=== PATIENT | male | born 1950 | race Caucasian/White ===

== ENCOUNTER 2019-02-10 09:38 | Inpatient (IN) ==
[2019-02-10] MEDS ORDERED: methylPREDNISolone 125 MG/2 ML VIAL IVP ONE (10:00)
[2019-02-10] MEDS ORDERED: Ipratropium/Albuterol Neb 3 ML IH ONE (10:00)
[2019-02-10 10:18] LABS: Basophils # 0.1 K/mcL (0.0-0.2); Basophils % 0.4 %; Eosinophils # 0.1 K/mcL (0.0-0.6); Eosinophils % 0.6 %; Hematocrit 47.1 % (37.5-50.1); Hemoglobin 14.9 g/dL (12.9-16.9); Immature Granulocytes % 0.7 % (0-4); Lymphocytes # 3.2 K/mcL (0.6-4.6); Lymphocytes % 22.7 %; Mean Corpuscular HGB Conc 31.6 g/dL (31.6-35.5); Mean Corpuscular Hemoglobin 29.9 pg (28.0-33.3); Mean Corpuscular Volume 94.4 fL (83.0-100.0); Mean Platelet Volume 10.9 fL (9.4-12.4); Monocytes # 0.9 K/mcL (0.0-1.3); Monocytes % 6.7 %; Platelet Count 284 K/mcL (140-400); Red Blood Count 4.99 M/mcL (4.19-5.50); Red Cell Distribution Width 14.2 % (11.5-14.5); Segmented Neutrophils % 68.9 %
[2019-02-10 10:20] LABS: Neutrophils # 9.7 K/mcL (1.6-8.9)
--- NOTE | 2019-02-10 10:29 | Emergency Department Note ---
Disposition Clinical Impression: SIRS (systemic inflammatory response syndrome) Pneumonia Qualifiers: Pneumonia type: due to unspecified organism Laterality: unspecified laterality Lung location: unspecified part of lung Qualified Code(s): J18.9 - Pneumonia, unspecified organism CHF (congestive heart failure) Qualifiers: Heart failure type: unspecified Heart failure chronicity: acute Qualified Code(s): I50.9 - Heart failure, unspecified Disposition: Admitted As Inpatient Condition: Good Time of Disposition: 11:37 SOB HPI - General Chief Complaint: ED Shortness of Breath/Dyspnea Stated Complaint: DAMION Time Seen by Provider: 02/10/19 09:47 Source: patient Nursing Notes Reviewed: Yes Vital Signs Reviewed: Yes - History of Present Illness This is a 68-year-old gentleman who presents today with a complaint of cough, congestion, dyspnea for the past 4-5 days. Patient was seen on February 04 and diagnosed with pneumonia. He was put on azithromycin for outpatient treatment. Patient states he is not getting any better. He continues to have trouble breathing, and a productive cough. He denies any fever or chills. He denies any vomiting or diarrhea. He denies any chest pain. There are no obvious aggravating or relieving factors. Pt Subjective Complaint: shortness of breath, cough Onset (ago): day(s) Context: medication noncompliance Severity: moderate - Related Data Previous Rx's Medication Instructions Recorded Albuterol Sulfate [Albuterol 2 puff IH Q4HR #1 puff 02/04/19 Inhaler] Allergies Allergy/AdvReac Type Severity Reaction Status Date / Time No Known Allergies Allergy Verified 02/04/19 13:05 All systems ED: reviewed and negative except as stated. Constitutional: Denies: fever, chills ENT ED: Reports: congestion Cardiovascular: Denies: chest pain, palpitations Respiratory: Reports: cough, dyspnea Gastrointestinal: Denies: abdominal pain, nausea Integumentary: Denies: rash Past Medical History - Past Medical History Medical history: Reports: no medical history Surgical history: Reports: other Psychiatric history: Reports: no psych history - Social History Smoking Status: Current every day smoker Smokeless Tobacco Status: No Alcohol use: Reports: occasionally Drug use: Reports: marijuana Physical Exam - General Limitations: no limitations General appearance: alert, in distress - Head Head exam: atraumatic, normocephalic, normal inspection - Eye Eye exam: Present: normal appearance, PERRL, EOMI - Expanded Eye Exam Pupils: Left: reactive - ENT ENT exam: normal exam, normal oropharynx, mucous membranes moist - Expanded ENT Exam External ear exam: Present: normal external inspection Mouth exam: Present: normal external inspection Teeth exam: Present: normal inspection Throat exam: Present: normal inspection - Neck Neck exam: Present: normal inspection, full ROM, trachea midline - Chest Chest inspection: Present: normal inspection, symmetric chest wall rise - Respiratory Respiratory exam: Present: wheezes, accessory muscle use, other (There are diffuse scattered wheezes appreciated. Rhonchi in the left lung base.) - Cardiovascular Cardiovascular exam: Present: regular rate, normal rhythm, normal heart sounds - Abdominal Exam Abdominal exam: Present: soft, Non-Tender. Absent: tenderness, distention, guarding, rebound, rigidity - Extremities Exam Extremities exam: Present: normal inspection, full ROM. Absent: tenderness, pedal edema - Expanded Upper Extremity Exam Shoulder exam: Present: normal inspection, full ROM Arm exam: Present: normal inspection, full ROM Elbow exam: Present: normal inspection, full ROM Forearm/Wrist exam: Present: normal inspection, full ROM Hand exam: Present: normal inspection, full ROM Vascular exam: Normal: capillary refill, radial pulse - Expanded Lower Extremity Exam Hip/Pelvis exam: Present: normal inspection, full ROM Upper leg exam: Present: normal inspection, full ROM Knee exam: Present: normal inspection, full ROM Lower leg exam: Present: normal inspection, full ROM Ankle exam: Present: normal inspection, full ROM Foot/toe exam: Present: normal inspection, full ROM Neurovascular/Tendon exam: Absent: motor deficit, sensory deficit, tendon deficit - Back Exam Back exam: Present: normal inspection, full ROM. Absent: tenderness - Neurological Exam Neurological exam: Present: alert, oriented X3 - Expanded Neurological Exam Patient oriented to: Present: person, place, time Coma Scale Eye Opening: Spontaneous Coma Scale Motor Response: Obeys Commands Coma Scale Verbal Response: Oriented Coma Scale Total: 15 - Psychiatric Psychiatric exam: Present: normal affect, normal mood - Skin Skin exam: Present: warm, dry, intact, normal color Course Vital Signs Temperature 98.1 F 02/10/19 09:49 Pulse Rate 88 02/10/19 09:49 Respiratory Rate 30 02/10/19 09:49 Blood Pressure 144/92 02/10/19 09:49 O2 Sat by Pulse Oximetry 93 02/10/19 09:49 Temperature 98.1 F 02/10/19 09:49 Pulse Rate 64 02/10/19 10:59 Respiratory Rate 18 02/10/19 10:59 Blood Pressure 151/93 02/10/19 10:59 O2 Sat by Pulse Oximetry 95 02/10/19 10:59 Oxygen Delivery Oxygen Delivery Nasal Cannula Shortness of Breath/Dyspnea - [facility] Narrative Medical decision making narrative: Differential diagnosis includes pneumonia versus COPD exacerbation. We will check basic labs. We will check lactate to rule out sepsis. EKG shows normal sinus rhythm at 94 beats per minute. Normal axis. Normal intervals. No acute injury pattern. Patient has old T-wave inversions in lateral leads. 1120 Patient reevaluated. Patient feels better after Neb treatment. Labs and imaging reviewed. Chest x-ray is read as CHF and pulmonary edema by radiologist. However, clinically, patient presents more like pneumonia. Lactate is elevated. However, due to concern for possible CHF with elevated BNP and troponin, I will refrain from any fluids at this time. 1130 Patient is doing well. Patient's care discussed with the hospitalist. Will admit. - Medical Records Medical records reviewed: Yes I reviewed the patient's medical records. - Lab Data Lab results reviewed: Yes I reviewed the patient's lab results. Result diagrams: 02/10/19 09:58 02/10/19 09:58 Lab Results 02/10/19 02/10/19 02/10/19 Range/Units 08:54 09:45 09:48 WBC (4.3-11.1) K/mcL RBC (4.19-5.50) M/mcL Hgb (12.9-16.9) g/dL Hct (37.5-50.1) % MCV (83.0-100.0) fL MCH (28.0-33.3) pg MCHC (31.6-35.5) g/dL RDW (11.5-14.5) % Plt Count (140-400) K/mcL MPV (9.4-12.4) fL Immature Gran % (0-4) % Seg Neutrophils % % Lymphocytes % % Monocytes % % Eosinophils % % Basophils % % Neutrophils # (1.6-8.9) K/mcL Lymphocytes # (0.6-4.6) K/mcL Monocytes # (0.0-1.3) K/mcL Eosinophils # (0.0-0.6) K/mcL Basophils # (0.0-0.2) K/mcL PT 10.9 (9.4-12.1) Seconds INR 1.0 APTT 27.6 (26.0-36.0) Seconds ABG pH (7.32-7.45) pH Units ABG pCO2 (35-45) mmHg ABG pO2 (85-104) mmHg ABG HCO3 (21-27) mEq/L ABG Total CO2 (20-26) mEq/L ABG O2 Saturation (95-98) % ABG Base Excess (-2 to 3) mEq/L O2 Delivery Device Sodium (136-145) mEq/L Potassium (3.5-5.1) mEq/L Chloride (98-107) mEq/L Carbon Dioxide (23-29) mEq/L BUN (8-23) mg/dL Creatinine (0.70-1.30) mg/dL Est GFR ( Amer) (> 60) Est GFR (Non-Af Amer) (> 60) BUN/Creatinine Ratio (6-26) Glucose (70-105) mg/dL Calculated Osmolality (280-300) Lactic Acid 3.8 H (0.5-2.2) mmol/L Calcium (8.6-10.3) mg/dL Total Bilirubin (0.3-1.0) mg/dL Direct Bilirubin (0.0-0.2) mg/dL Indirect Bilirubin (0.0-1.2) mg/dL AST (13-39) Units/L ALT (7-52) Units/L Alkaline Phosphatase (34-104) Units/L Troponin I (< 0.04) ng/mL B-Natriuretic Peptide 2415 H (Less than 100) pg/mL Serum Total Protein (6.4-8.9) g/dL Albumin (3.5-5.7) g/dL Globulin (2.4-3.5) g/dL Albumin/Globulin Ratio (1.1-2.2) Lipase (11-82) Units/L 02/10/19 02/10/19 02/10/19 Range/Units 09:58 09:58 10:29 WBC 14.0 H D (4.3-11.1) K/mcL RBC 4.99 (4.19-5.50) M/mcL Hgb 14.9 (12.9-16.9) g/dL Hct 47.1 (37.5-50.1) % MCV 94.4 (83.0-100.0) fL MCH 29.9 (28.0-33.3) pg MCHC 31.6 (31.6-35.5) g/dL RDW 14.2 (11.5-14.5) % Plt Count 284 (140-400) K/mcL MPV 10.9 (9.4-12.4) fL Immature Gran % 0.7 (0-4) % Seg Neutrophils % 68.9 % Lymphocytes % 22.7 % Monocytes % 6.7 % Eosinophils % 0.6 % Basophils % 0.4 % Neutrophils # 9.7 H (1.6-8.9) K/mcL Lymphocytes # 3.2 (0.6-4.6) K/mcL Monocytes # 0.9 (0.0-1.3) K/mcL Eosinophils # 0.1 (0.0-0.6) K/mcL Basophils # 0.1 (0.0-0.2) K/mcL PT (9.4-12.1) Seconds INR APTT (26.0-36.0) Seconds ABG pH 7.45 (7.32-7.45) pH Units ABG pCO2 33 L (35-45) mmHg ABG pO2 65 L (85-104) mmHg ABG HCO3 23 (21-27) mEq/L ABG Total CO2 24 (20-26) mEq/L ABG O2 Saturation 94 L (95-98) % ABG Base Excess 0 (-2 to 3) mEq/L O2 Delivery Device Room Air Sodium 135 L (136-145) mEq/L Potassium 3.9 (3.5-5.1) mEq/L Chloride 100 (98-107) mEq/L Carbon Dioxide 26 (23-29) mEq/L BUN 18 (8-23) mg/dL Creatinine 0.89 (0.70-1.30) mg/dL Est GFR ( Amer) > 60 (> 60) Est GFR (Non-Af Amer) > 60 (> 60) BUN/Creatinine Ratio 20 (6-26) Glucose 149 H (70-105) mg/dL Calculated Osmolality 285 (280-300) Lactic Acid (0.5-2.2) mmol/L Calcium 8.7 (8.6-10.3) mg/dL Total Bilirubin 0.7 (0.3-1.0) mg/dL Direct Bilirubin 0.1 (0.0-0.2) mg/dL Indirect Bilirubin 0.6 (0.0-1.2) mg/dL AST 28 (13-39) Units/L ALT 27 (7-52) Units/L Alkaline Phosphatase 90 (34-104) Units/L Troponin I 0.05 H* (< 0.04) ng/mL B-Natriuretic Peptide (Less than 100) pg/mL Serum Total Protein 6.9 (6.4-8.9) g/dL Albumin 3.9 (3.5-5.7) g/dL Globulin 3.0 (2.4-3.5) g/dL Albumin/Globulin Ratio 1.3 (1.1-2.2) Lipase 18 (11-82) Units/L - Radiology Data Radiology results reviewed: Yes I reviewed the patient's radiology results. Critical Care Time Critical Care Time: Yes Total Critical Care Time: 30 Attestation: Critical cre for management of respiratory distress, evaluation for sepsis.
[2019-02-10 10:32] LABS: ABG Base Excess 0 mEq/L (-2 to 3); ABG HCO3 23 mEq/L (21-27); ABG Oxygen Saturation 94 % (95-98); ABG PCO2 33 mmHg (35-45); ABG PH 7.45 pH Units (7.32-7.45); ABG PO2 65 mmHg (85-104); ABG TCO2 24 mEq/L (20-26)
[2019-02-10 10:40] LABS: Alanine Aminotransferase 27 Units/L (7-52); Albumin 3.9 g/dL (3.5-5.7); Albumin/Globulin Ratio 1.3 (1.1-2.2); Alkaline Phosphatase 90 Units/L (34-104); Aspartate Amino Transferase 28 Units/L (13-39); BUN/Creatinine Ratio 20 (6-26); Bilirubin,Direct 0.1 mg/dL (0.0-0.2); Bilirubin,Indirect 0.6 mg/dL (0.0-1.2); Bilirubin,Total 0.7 mg/dL (0.3-1.0); Blood Urea Nitrogen 18 mg/dL (8-23); Calcium 8.7 mg/dL (8.6-10.3); Carbon Dioxide 26 mEq/L (23-29); Chloride 100 mEq/L (98-107); Glucose 149 mg/dL (70-105); Lipase 18 Units/L (11-82); Osmolality,Calculated 285 (280-300); Potassium 3.9 mEq/L (3.5-5.1); Sodium 135 mEq/L (136-145); Total Protein 6.9 g/dL (6.4-8.9); Troponin I 0.05 ng/mL (< 0.04); eGFR For African Americans > 60 (> 60); eGFR For Non-African Americans > 60 (> 60)
[2019-02-10 10:42] LABS: Prothrombin Time 10.9 Seconds (9.4-12.1)
[2019-02-10 10:45] LABS: Activated Partial Thrombo Time 27.6 Seconds (26.0-36.0)
[2019-02-10] MEDS ORDERED: levoFLOXacin 750 MG/150 ML 750 MG/150 ML BAG IVPB ONE (10:51)
[2019-02-10] MEDS ORDERED: Aspirin 81 MG TAB.CHEW PO ONE (11:05)
[2019-02-10] MEDS ORDERED: Acetaminophen 325 MG TABLET PO PRN (13:14)
[2019-02-10] MEDS ORDERED: MOM Conc 10 ML UD.LIQ PO PRN (13:14)
[2019-02-10] MEDS ORDERED: Mag Hydrox/Al Hydrox/Simeth 30 ML UDC PO PRN (13:14)
[2019-02-10] MEDS ORDERED: Naloxone 0.4 MG/ML INJ IVP PRN (13:14)
[2019-02-10] MEDS ORDERED: Ondansetron ODT 4 MG TAB.RAPDIS SL PRN (13:14)
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
[2019-02-10 15:22] LABS: Influenza A PCR Negative (Negative); Influenza B PCR Negative (Negative); Resp. Syncytial Virus PCR Negative (Negative)
[2019-02-10] MEDS: MethylPREDNISolone 40 MG/ML VIAL IVP SCH (17:29)
[2019-02-11 02:11] LABS: Hematocrit 42.8 % (37.5-50.1); Hemoglobin 13.9 g/dL (12.9-16.9); Mean Corpuscular HGB Conc 32.5 g/dL (31.6-35.5); Mean Corpuscular Hemoglobin 29.3 pg (28.0-33.3); Mean Corpuscular Volume 90.1 fL (83.0-100.0); Mean Platelet Volume 11.6 fL (9.4-12.4); Platelet Count 242 K/mcL (140-400); Red Blood Count 4.75 M/mcL (4.19-5.50); Red Cell Distribution Width 14.2 % (11.5-14.5)
[2019-02-11 02:21] LABS: White Blood Count 6.4 K/mcL (4.3-11.1)
[2019-02-11 02:29] LABS: BUN/Creatinine Ratio 23 (6-26); Blood Urea Nitrogen 20 mg/dL (8-23); Carbon Dioxide 27 mEq/L (23-29); Chloride 101 mEq/L (98-107); Glucose 144 mg/dL (70-105); Magnesium 1.7 mg/dL (1.6-2.6); Osmolality,Calculated 287 (280-300); Potassium 4.7 mEq/L (3.5-5.1); Sodium 136 mEq/L (136-145); eGFR For African Americans > 60 (> 60); eGFR For Non-African Americans > 60 (> 60)
[2019-02-11] MEDS: MethylPREDNISolone 40 MG/ML VIAL IVP SCH ×3 (02:57→17:41)
[2019-02-11] MEDS ORDERED: levoFLOXacin 750 MG/150 ML 750 MG/150 ML BAG IVPB SCH (09:00)
--- NOTE | 2019-02-11 09:02 | Internal Med Progress Note ---
<Randy Perez - Last Filed: 02/11/19 12:57> Hospitalist Progress Note - Encounter Date of Encounter: 02/11/19 - Exam Vitals: Temp Pulse Resp BP Pulse Ox 98.0 F 59 16 116/37 98 02/11/19 11:12 02/11/19 11:12 02/11/19 11:12 02/11/19 11:12 02/11/19 11:12 - Assessment and Plan (1) Pneumonia Current Visit: Yes Status: Suspected (2) CHF (congestive heart failure) Current Visit: Yes Status: Acute (3) Demand ischemia Current Visit: Yes Status: Suspected (4) Sepsis Current Visit: Yes Status: Acute (5) Tobacco abuse Current Visit: Yes Status: Chronic - Time Spent with Patient Total time spent is greater than 50% in coordination of care (as documented) at patient's floor/unit and/or counseling patient: Internal Medicine: Result - Labs CBC & Chem 7: 02/11/19 01:18 02/11/19 01:18 Labs: Short CBC 02/11/19 Range/Units 01:18 WBC 6.4 D (4.3-11.1) K/mcL Hgb 13.9 (12.9-16.9) g/dL Hct 42.8 (37.5-50.1) % Plt Count 242 (140-400) K/mcL BMP 02/11/19 01:18 Sodium 136 Potassium 4.7 Chloride 101 Carbon Dioxide 27 BUN 20 Creatinine 0.87 Glucose 144 H Calcium 9.0 Cardiac Enzymes 02/10/19 02/10/19 Range/Units 18:09 23:39 Troponin I 0.06 H* 0.06 H* (< 0.04) ng/mL - ABG Interpretation ABG results: ABG ABG pH 7.45 pH Units (7.32-7.45) 02/10/19 10:29 ABG pCO2 33 mmHg (35-45) L 02/10/19 10:29 ABG pO2 65 mmHg (85-104) L 02/10/19 10:29 ABG O2 Saturation 94 % (95-98) L 02/10/19 10:29 PT/INR, D-dimer PT 10.9 Seconds (9.4-12.1) 02/10/19 09:48 - Impressions Impressions Chest CT 02/10/19 16:50 IMPRESSION: 1. Constellation of findings typical of congestive heart failure including bilateral pleural effusion. 2. Emphysema. 3. Dilatation of the ascending and descending thoracic aorta. Nonemergent vascular consultation recommended. 4. Nonspecific mediastinal lymph node enlargement is probably reactive. Attention to this on follow-up imaging should be considered in 3-6 months. 5. Calcific atherosclerosis aorta and coronary arteries. 6. 5.0 mm solid pulmonary nodule within the upper lobe. A non-contrast Chest CT at 12 months is optional. If performed and the nodule is stable at 12 months, no further follow-up is recommended*. 7. Partial visualization of the gallbladder demonstrates pericholecystic fluid which is nonspecific. Dedicated imaging of the gallbladder may be indicated. ____ *These guidelines do not apply to immunocompromised patients and patients with cancer. Follow up in patients with significant comorbidities as clinically warranted. For lung cancer screening, adhere to Lung-RADS guidelines. Reference: Radiology. 2017; 284(1):228-43. RECOMMENDATIONS: - nonemergent vascular consultation. - additional imaging of the gallbladder may be indicated; correlate with history and physical findings. - CT chest follow-up in 3-6 months. D/ / Lennox Calderón / Lennox Calderón Interpreting Provider: Lennox Calderón Consult Discharge Plan - Plan Referrals: NONE,PCP [Primary Care Provider] - - Attending Attestation I examined this patient and my medical decision-making was reviewed with the Resident Physician 02/11/19. I agree with the documented findings, disposition and treatment plan as described except to the extent set forth below. Mr Lam is currently hospitalized for acute pneumonia and CHF. He remains moderate to high risk due to potential for worsening clinical status. Mr Lam is feeling OK. Less cough and dyspnea. No CP now. No GI issues. Echo pending Exam: Alert. Comfortable. NC. Mucus membranes dry. Neck supple. Heart reg and distant. Some scattered wheeze. Abd soft and nontender. Moves all extremities. No rash. No edema Plan: D/C abx - procalcitonin negative. Echo pending. Continue otherwise current treatment. <Umberto Viveros S - Last Filed: 02/11/19 13:50> Hospitalist Progress Note - Encounter Date of Encounter: 02/11/19 Time of Encounter: 09:02 - Subjective Interval History: Mr. Lam is a 68-year-old male admitted to our service with cough/shortness of breath, clinical suspicion for pneumonia. He reports he is doing well, feeling improved from yesterday. No shortness of breath, chest pain. Reports his cough is improving and is still productive of sputum, however, sputum production is decreased. He denies nausea, vomiting, headache, dizziness, trouble speaking or swallowing, blurry vision or double vision, diarrhea, constipation, black stool, bloody stool, numbness/tingling/weakness anywhere. - Exam Vitals: Temp Pulse Resp BP Pulse Ox 97.6 F 61 14 142/82 99 02/11/19 07:19 02/11/19 07:19 02/11/19 07:19 02/11/19 07:19 02/11/19 07:19 Exam: Gen: Awake and alert, no acute distress, well-nourished, Head: Normocephalic, atraumatic Eyes: EOMI, no scleral icterus ENT: Mucous membranes moist, no oropharyngeal erythema CV: S1-S2 present, regular at a rate of approx. 60, no murmurs rubs or gallops Pulm: ronchi bilaterally in all lung johnson, not tachypneic, no respiratory distress, no increased work of breathing. Nasal cannula was dangling around pts neck at time of exam Abd: Soft, nontender to palpation, nondistended, no rebound or guarding. lower abdominal midline surgical scar noted. EXT: Grossly intact motor strength in all 4 extremities, no lower extremity edema, no distal cyanosis or pallor Skin: Warm, dry, intact, no rashes or lesions noted Neuro: Cranial nerves II-XII grossly intact, no focal nurologic deficits Psych: normal mood and affect, Answers questions with linear thought. has notable decreased insight into his health and current condition. - Assessment and Plan (1) CHF (congestive heart failure) Current Visit: Yes Status: Acute Assessment and Plan: Pt without known history of heart problems CT showed bilateral pulmonary effusions and aortic dilation No murmurs auscultated on physical exam No lower extremity edema auscultation consistent with diffuse pulmonary edema BNP elevated at 2415 Troponin mildly elevated at 0.05, 0.06 and 0.06, consistent with type 2 spill EKG findings of LVH * Taken as a whole, and in the absence of s/s of infectious causes of his SOB, this presentation is more consistent with acute isolated left-sided heart failure. * Echocardiogram ordered, no prior echo or cardiac workup found on search of records * Telemetry monitoring ordered * Consider cardiology consult after results of echo (2) Pneumonia Current Visit: Yes Status: Ruled-out Assessment and Plan: Procalcitonin was found to be low Influenza and RSV PCR's negative Patient remains afebrile minimal response to antibiotic treatment Physical exam findings showing diffuse ronchi, with even severity throughout all lung johnson CHF appears more likely Dx given elevated BNP and Troponin * PNA very unlikely given the above findings * d/c abx (3) Abnormal CT of the chest Current Visit: Yes Status: Acute Assessment and Plan: Abnormal findings included: Dilatation of the ascending and descending thoracic aorta. * Nonemergent vascular consultation will be planned after discharge Nonspecific mediastinal lymph node enlargement * follow-up imaging should be considered in 3-6 months. 5.0 mm solid pulmonary nodule within the upper lobe. * A non-contrast Chest CT at 12 months is optional. If performed and the nodule is stable at 12 months, no further follow-up is recommended. Partial visualization of the gallbladder demonstrates pericholecystic fluid which is nonspecific. * RUQ ultrasound will be ordered. (4) Sepsis Current Visit: Yes Status: Ruled-out Assessment and Plan: see assessment for PNA DVT Prophylaxis: SQH - Summary of Assessment and Plan Summary of Assessment and Plan: * CHF now #1 Ddx * Echo * d/c abx * possible cardiology consult - Time Spent with Patient Total time spent is greater than 50% in coordination of care (as documented) at patient's floor/unit and/or counseling patient: Internal Medicine: Result - Labs CBC & Chem 7: 02/11/19 01:18 02/11/19 01:18 Labs: Short CBC 02/10/19 02/11/19 Range/Units 09:58 01:18 WBC 14.0 H D 6.4 D (4.3-11.1) K/mcL Hgb 14.9 13.9 (12.9-16.9) g/dL Hct 47.1 42.8 (37.5-50.1) % Plt Count 284 242 (140-400) K/mcL Neutrophils # 9.7 H (1.6-8.9) K/mcL BMP 02/10/19 02/11/19 09:58 01:18 Sodium 135 L 136 Potassium 3.9 4.7 Chloride 100 101 Carbon Dioxide 26 27 BUN 18 20 Creatinine 0.89 0.87 Glucose 149 H 144 H Calcium 8.7 9.0 Cardiac Enzymes 02/10/19 02/10/19 02/10/19 Range/Units 09:58 18:09 23:39 Troponin I 0.05 H* 0.06 H* 0.06 H* (< 0.04) ng/mL Liver Function 02/10/19 Range/Units 09:58 Total Bilirubin 0.7 (0.3-1.0) mg/dL Direct Bilirubin 0.1 (0.0-0.2) mg/dL AST 28 (13-39) Units/L ALT 27 (7-52) Units/L Alkaline Phosphatase 90 (34-104) Units/L Albumin 3.9 (3.5-5.7) g/dL - ABG Interpretation ABG results: ABG ABG pH 7.45 pH Units (7.32-7.45) 02/10/19 10:29 ABG pCO2 33 mmHg (35-45) L 02/10/19 10:29 ABG pO2 65 mmHg (85-104) L 02/10/19 10:29 ABG O2 Saturation 94 % (95-98) L 02/10/19 10:29 PT/INR, D-dimer PT 10.9 Seconds (9.4-12.1) 02/10/19 09:48 - Impressions Impressions Chest X-Ray 02/10/19 10:37 IMPRESSION: Findings as above likely related to congestive heart failure and edema D/ / Rhonda Yusuf MD / Rhonda Yusuf MD Interpreting Provider: Rhonda Yusuf MD Chest CT 02/10/19 16:50 IMPRESSION: 1. Constellation of findings typical of congestive heart failure including bilateral pleural effusion. 2. Emphysema. 3. Dilatation of the ascending and descending thoracic aorta. Nonemergent vascular consultation recommended. 4. Nonspecific mediastinal lymph node enlargement is probably reactive. Attention to this on follow-up imaging should be considered in 3-6 months. 5. Calcific atherosclerosis aorta and coronary arteries. 6. 5.0 mm solid pulmonary nodule within the upper lobe. A non-contrast Chest CT at 12 months is optional. If performed and the nodule is stable at 12 months, no further follow-up is recommended*. 7. Partial visualization of the gallbladder demonstrates pericholecystic fluid which is nonspecific. Dedicated imaging of the gallbladder may be indicated. ____ *These guidelines do not apply to immunocompromised patients and patients with cancer. Follow up in patients with significant comorbidities as clinically warranted. For lung cancer screening, adhere to Lung-RADS guidelines. Reference: Radiology. 2017; 284(1):228-43. RECOMMENDATIONS: - nonemergent vascular consultation. - additional imaging of the gallbladder may be indicated; correlate with history and physical findings. - CT chest follow-up in 3-6 months. D/ / Lennox Calderón / Lennox Calderón Interpreting Provider: Lennox Calderón <Randy Perez A - Last Filed: 02/11/19 12:57> (1) Pneumonia Qualifiers: Pneumonia type: due to Pneumococcus Laterality: unspecified laterality Lung location: unspecified part of lung Qualified Code(s): J13 - Pneumonia due to Streptococcus pneumoniae (2) CHF (congestive heart failure) Qualifiers: Heart failure type: unspecified Heart failure chronicity: acute Qualified Code(s): I50.9 - Heart failure, unspecified (4) Sepsis Qualifiers: Sepsis type: sepsis due to unspecified organism Sepsis acute organ dysfunction status: without acute organ dysfunction Qualified Code(s): A41.9 - Sepsis, unspecified organism <Umberto Viveros - Last Filed: 02/11/19 13:50> (1) CHF (congestive heart failure) Qualifiers: Heart failure type: unspecified Heart failure chronicity: acute Qualified Code(s): I50.9 - Heart failure, unspecified (2) Pneumonia Qualifiers: Pneumonia type: due to Pneumococcus Laterality: unspecified laterality Lung location: unspecified part of lung Qualified Code(s): J13 - Pneumonia due to Streptococcus pneumoniae (4) Sepsis Qualifiers: Sepsis type: sepsis due to unspecified organism Sepsis acute organ dysfunction status: without acute organ dysfunction Qualified Code(s): A41.9 - Sepsis, unspecified organism
[2019-02-11] MEDS ORDERED: Perflutren Lipid Microsphere 1.3 ML in 0.9 % Sodium Chloride 8.7 ML IVP ONE (13:06)
--- NOTE | 2019-02-11 13:16 | Electrocardiograph Report ---
[address] [address] Test Date: 2019-02-10 Pat Name: Randy Lam Department: EXAM8 Room: 3B36 Gender: M Document Preparation Specialist: : 1950 Requested By: Janice Benitez Order Number: [id number] Reading MD: Chemo Macdonald Measurements Intervals [place] Rate: 94 P: 76 [place]: 140 QRS: 73 QRSD: 100 T: 258 QT: 350 QTc: 438 Interpretive Statements Sinus rhythm Probable left atrial enlargement LVH with secondary repolarization abnormality Electronically Signed On 02-11-2019 13:15:22 EDT by Chemo Macdonald
[2019-02-11] MEDS: *HR* Heparin 5,000 UNIT/ML VIAL SQ SCH (17:41)
[2019-02-12] MEDS: MethylPREDNISolone 40 MG/ML VIAL IVP SCH ×3 (02:13→17:43)
[2019-02-12] MEDS: *HR* Heparin 5,000 UNIT/ML VIAL SQ SCH ×2 (05:29→17:46)
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
--- NOTE | 2019-02-12 09:30 | Internal Med Progress Note ---
<Randy Perez - Last Filed: 02/12/19 13:31> Hospitalist Progress Note - Encounter Date of Encounter: 02/12/19 - Exam Vitals: Temp Pulse Resp BP Pulse Ox 98 F 60 16 149/81 96 02/12/19 12:45 02/12/19 13:15 02/12/19 13:15 02/12/19 13:15 02/12/19 13:15 - Assessment and Plan (1) CHF (congestive heart failure) Current Visit: Yes Status: Acute (2) Pneumonia Current Visit: Yes Status: Ruled-out (3) Demand ischemia Current Visit: Yes Status: Suspected (4) Sepsis Current Visit: Yes Status: Ruled-out (5) Tobacco abuse Current Visit: Yes Status: Chronic (6) CAD (coronary artery disease) Current Visit: Yes Status: Chronic - Time Spent with Patient Total time spent is greater than 50% in coordination of care (as documented) at patient's floor/unit and/or counseling patient: Internal Medicine: Result - Labs CBC & Chem 7: 02/11/19 01:18 02/11/19 01:18 - ABG Interpretation ABG results: ABG ABG pH 7.45 pH Units (7.32-7.45) 02/10/19 10:29 ABG pCO2 33 mmHg (35-45) L 02/10/19 10:29 ABG pO2 65 mmHg (85-104) L 02/10/19 10:29 ABG O2 Saturation 94 % (95-98) L 02/10/19 10:29 PT/INR, D-dimer PT 10.9 Seconds (9.4-12.1) 02/10/19 09:48 - Impressions Impressions Echocardiogram 02/11/19 13:08 Impressions: LVEF 25-30%. Severe segmental left ventricular systolic dysfunction. Moderate left ventricular diastolic dysfunction. Normal right ventricular structure and function. Mild biatrial dilatation. Mild aortic regurgitation. Moderate mitral regurgitation. Mild to moderate tricuspid regurgitation. Mild pulmonary hypertension. Ordering physician notified via Zerply. Left Ventricular Wall Motion: Rest Echo Findings The apical lateral, mid anterior lateral, basal anterior lateral, mid inferior lateral and basal inferior lateral rivas were hypokinetic. The apical anterior, mid anterior and basal anterior rivas were akinetic. All other wall segments showed normal motion. Findings: Study Quality * Technically sub-optimal due to clinical status. ECG Findings * Normal sinus rhythm. Left Ventricle * LVEF 25-30%. * Severe segmental left ventricular systolic dysfunction. * Moderate left ventricular diastolic dysfunction. * Definity echo contrast was not used. * Normal LV chamber size, wall thickness. Right Ventricle * Normal right ventricular structure and function. Left Atrium * Mildly dilated left atrium. Right Atrium * Mildly dilated right atrium. Interatrial Septum * Interatrial septum not well evaluated. Aortic Valve * Aortic valve not well visualized. * Mildly calcified aortic valve leaflets. * Mild aortic regurgitation. * No aortic stenosis. Mitral Valve * Normal mitral valve structure. * No mitral stenosis. * Moderate mitral regurgitation. Tricuspid Valve * Normal tricuspid valve structure. * No tricuspid stenosis. * Mild to moderate tricuspid regurgitation. * Estimated RVSP is 44 mmHg. * Estimated RA pressure is 8 mmHg. * Mild pulmonary hypertension. Pulmonic Valve * Pulmonic valve is not well visualized. * No pulmonic stenosis. * No pulmonic regurgitation. Aorta * Normally sized aortic root. Pericardium * The pericardium appears normal. IVC * The IVC is not dilated. * < 50% respiratory change. Abdomen Ultrasound 02/11/19 22:26 IMPRESSION: Sludge and stones in the gallbladder. No evidence of cholecystitis. D/ / 02/11/2019 23:25:17 Deja Lemos MD / shaunna Interpreting Provider: Deja Lemos MD Consult Discharge Plan - Plan Referrals: Michi Rossi MD [Resident] - 02/19/19 2:00 pm (Please arrive 30 min early to your appointment to fill out paperwork. Please bring a list of medications including any over the counter medications you are taking. Bring your insurance card and valid ID.) - Attending Attestation The history, physical exam, and medical decision making was performed by the medical student either while I was physically present and actively involved or I personally re-performed the exam and medical decision making. I have verified the accuracy of the medical student's documentation with regards to the history, physical exam findings, and medical decision making on 02/12/19. Mr Lam is currently admitted for new onset systolic heart failure. He remains moderate to high risk due to potential for worsening cardiac issues. Mr Lam was seen post cath. He is still somnolent from meds. No fever or chills. No CP or SOB. BP up since return. Exam Alert. Comfortable. NC. EOMI. Mucus membranes dry. Neck supple. Heart distant - regular. No wheeze. Occ rales. Abd soft. 1+ edema. Moves all extremities. No rash. I/P 1. Acute systolic CHF - [facility] today. Non obstructive CAD. Medical management. 2. CAD 3. Probable emphysema Further diagnoses and plan as above. <Efrain Montes De Oca - Last Filed: 02/12/19 17:02> Hospitalist Progress Note - Encounter Date of Encounter: 02/12/19 Time of Encounter: 09:30 - Subjective Interval History: Pt was sitting up in bed when resident and I entered the room. States that his breathing has significantly improved since his admission. Denies any chest pains, diarrhea, constipation, trouble breathing. Admits to having a nonproductive cough that he says would make him feel better if he could cough something up. - Exam Vitals: Temp Pulse Resp BP Pulse Ox 97.7 F 61 17 147/81 97 02/12/19 07:25 02/12/19 07:25 02/12/19 07:25 02/12/19 07:25 02/12/19 07:25 Exam: Gen: NAD, ill appearing CVS: RRR, S1, S2, no edema in LE or abdomen Lungs: Diminished breath sounds but can hear air flow in all lung johnson anteriorly and posteriorly, symmetric expansion, nonlabored Abdomen: soft, nontender, no ascites Extremities: radial & dorsal pulses present B/L 2+ - Assessment and Plan (1) CHF (congestive heart failure) Current Visit: Yes Status: Acute Assessment and Plan: Pt without known history of heart problems CT showed bilateral pulmonary effusions and aortic dilation No murmurs auscultated on physical exam No lower extremity edema auscultation consistent with diffuse pulmonary edema BNP elevated at 2415 Troponin mildly elevated at 0.05, 0.06 and 0.06, consistent with type 2 spill EKG findings of LVH Echo performed 02/11 showed EF of 25-30% Cardiology consulted and saw patient 02/12 [facility] performed which showed EF ~20%; no interventions performed-medical management advised Will defer management to cardiology-we appreciate their input (2) Pneumonia Current Visit: Yes Status: Resolved Assessment and Plan: Pt presented to ED with worsening SOB refractory to outpatient abx treatment for suspected pneumonia 02/04 Procalcitonin was found to be low Influenza and RSV PCR's negative Patient remains afebrile minimal response to antibiotic treatment Physical exam findings showing diffuse rhonchi, with even severity throughout all lung johnson CHF appears more likely Dx given elevated BNP and Troponin PNA very unlikely given the above findings d/c abx Due to clinical improvement, will begin taper of steroids from Q8 to Q12H 02/12; plan on switching to oral 40mg PO BID starting 02/13 (3) Sepsis Current Visit: Yes Status: Ruled-out Assessment and Plan: See PNA plan (4) Abnormal CT of the chest Current Visit: Yes Status: Acute Assessment and Plan: Abnormal findings included: Dilatation of the ascending and descending thoracic aorta. Nonemergent vascular consultation will be planned after discharge Nonspecific mediastinal lymph node enlargement follow-up imaging should be considered in 3-6 months. 5.0 mm solid pulmonary nodule within the upper lobe. A non-contrast Chest CT at 12 months is optional. If performed and the nodule is stable at 12 months, no further follow-up is recommended. Partial visualization of the gallbladder demonstrates pericholecystic fluid w hich is nonspecific. RUQ ultrasound Sludge and stones in the gallbladder. No evidence of cholecys titis. - Time Spent with Patient Total time spent is greater than 50% in coordination of care (as documented) at patient's floor/unit and/or counseling patient: Internal Medicine: Result - Labs CBC & Chem 7: 02/11/19 01:18 02/11/19 01:18 - ABG Interpretation ABG results: ABG ABG pH 7.45 pH Units (7.32-7.45) 02/10/19 10:29 ABG pCO2 33 mmHg (35-45) L 02/10/19 10:29 ABG pO2 65 mmHg (85-104) L 02/10/19 10:29 ABG O2 Saturation 94 % (95-98) L 02/10/19 10:29 PT/INR, D-dimer PT 10.9 Seconds (9.4-12.1) 02/10/19 09:48 - Impressions Impressions Echocardiogram 02/11/19 13:08 Impressions: LVEF 25-30%. Severe segmental left ventricular systolic dysfunction. Moderate left ventricular diastolic dysfunction. Normal right ventricular structure and function. Mild biatrial dilatation. Mild aortic regurgitation. Moderate mitral regurgitation. Mild to moderate tricuspid regurgitation. Mild pulmonary hypertension. Ordering physician notified via Zerply. Left Ventricular Wall Motion: Rest Echo Findings The apical lateral, mid anterior lateral, basal anterior lateral, mid inferior lateral and basal inferior lateral rivas were hypokinetic. The apical anterior, mid anterior and basal anterior rivas were akinetic. All other wall segments showed normal motion. Findings: Study Quality * Technically sub-optimal due to clinical status. ECG Findings * Normal sinus rhythm. Left Ventricle * LVEF 25-30%. * Severe segmental left ventricular systolic dysfunction. * Moderate left ventricular diastolic dysfunction. * Definity echo contrast was not used. * Normal LV chamber size, wall thickness. Right Ventricle * Normal right ventricular structure and function. Left Atrium * Mildly dilated left atrium. Right Atrium * Mildly dilated right atrium. Interatrial Septum * Interatrial septum not well evaluated. Aortic Valve * Aortic valve not well visualized. * Mildly calcified aortic valve leaflets. * Mild aortic regurgitation. * No aortic stenosis. Mitral Valve * Normal mitral valve structure. * No mitral stenosis. * Moderate mitral regurgitation. Tricuspid Valve * Normal tricuspid valve structure. * No tricuspid stenosis. * Mild to moderate tricuspid regurgitation. * Estimated RVSP is 44 mmHg. * Estimated RA pressure is 8 mmHg. * Mild pulmonary hypertension. Pulmonic Valve * Pulmonic valve is not well visualized. * No pulmonic stenosis. * No pulmonic regurgitation. Aorta * Normally sized aortic root. Pericardium * The pericardium appears normal. IVC * The IVC is not dilated. * < 50% respiratory change. Abdomen Ultrasound 02/11/19 22:26 IMPRESSION: Sludge and stones in the gallbladder. No evidence of cholecystitis. D/ / 02/11/2019 23:25:17 Deja Lemos MD / shaunna Interpreting Provider: Deja Lemos MD <Randy Perez A - Last Filed: 02/12/19 13:31> (1) CHF (congestive heart failure) Qualifiers: Heart failure type: systolic Heart failure chronicity: acute Qualified Code(s): I50.21 - Acute systolic (congestive) heart failure (2) Pneumonia Qualifiers: Pneumonia type: due to Pneumococcus Laterality: unspecified laterality Lung location: unspecified part of lung Qualified Code(s): J13 - Pneumonia due to Streptococcus pneumoniae (4) Sepsis Qualifiers: Sepsis type: sepsis due to unspecified organism Sepsis acute organ dysfunction status: without acute organ dysfunction Qualified Code(s): A41.9 - Sepsis, unspecified organism (6) CAD (coronary artery disease) Qualifiers: Coronary Disease-Associated Artery/Lesion type: [place] artery [place] vs. transplanted heart: [place] heart Associated angina: without angina Qualified Code(s): I25.10 - Atherosclerotic heart disease of [place] coronary artery witho ut angina pectoris <Efrain Montes De Oca - Last Filed: 02/12/19 17:02> (1) CHF (congestive heart failure) Qualifiers: Heart failure type: systolic Heart failure chronicity: acute Qualified Code(s): I50.21 - Acute systolic (congestive) heart failure (2) Pneumonia Qualifiers: Pneumonia type: due to Pneumococcus Laterality: unspecified laterality Lung location: unspecified part of lung Qualified Code(s): J13 - Pneumonia due to Streptococcus pneumoniae (3) Sepsis Qualifiers: Sepsis type: sepsis due to unspecified organism Sepsis acute organ dysfunction status: without acute organ dysfunction Qualified Code(s): A41.9 - Sepsis, unspecified organism
[2019-02-12 10:13] LABS: Adenovirus Not Detected (Not Detect); Bordetella Pertussis Not Detected (Not Detect); Chlamydophila pneumoniae Not Detected (Not Detect); Coronavirus 229E Not Detected (Not Detect); Coronavirus HKU1 Not Detected (Not Detect); Coronavirus NL63 Not Detected (Not Detect); Coronavirus OC43 Not Detected (Not Detect); Human Metapneumovirus Not Detected (Not Detect); Human Rhinovirus/Enterovirus Not Detected (Not Detect); Influenza A Subtype 2009 H1 Not Detected (Not Detect); Influenza A Untypeable Not Detected (Not Detect); Influenza B Not Detected (Not Detect); Mycoplasma pneumoniae Not Detected (Not Detect); Parainfluenza Virus 1 Not Detected (Not Detect); Parainfluenza Virus 2 Not Detected (Not Detect); Parainfluenza Virus 3 Not Detected (Not Detect); Parainfluenza Virus 4 Not Detected (Not Detect); Respiratory Syncytial Virus Not Detected (Not Detect)
[2019-02-12] MEDS ORDERED: *HR* Heparin 10,000 UNIT/10 ML VIAL ONE (10:26)
[2019-02-12] MEDS ORDERED: Nitroglycerin 1,000 MCG/10 ML VIAL IV ONE (10:27)
[2019-02-12] MEDS ORDERED: Heparin 1,000 UNITS/500 mL 500 ML ONE (10:27)
[2019-02-12] MEDS ORDERED: 0.9 % Sodium Chloride 1,000 ML ONE (10:27)
[2019-02-12] MEDS ORDERED: *HR* Midazolam HCl 2 MG/2 ML VIAL ONE (11:18)
[2019-02-12] MEDS ORDERED: *HR* FentaNYL (PF) 100 MCG/2 ML VIAL ONE (11:18)
--- NOTE | 2019-02-12 11:23 | Pre-Sedation Evaluation ---
Pre-sedation evaluation - Pre-sedation checklist Date of procedure: 02/12/19 Procedure: [facility] Recent Vitals: Last Vital Signs Temp 97.6 F 02/12/19 11:15 Pulse 95 02/12/19 11:15 Resp 17 02/12/19 11:15 BP 144/92 02/12/19 11:15 Pulse Ox 96 02/12/19 11:15 H&P (including ROS) documented in medical record: Yes Previous reaction to sedatives/anesthetics: No Dietary Status: NPO after Midnight Airway Assessment: Patient can open mouth completely, TMJ function normal, Micrognathia (under-bite, receding chin) absent, Neck with adequate range of mot ion Dentition: poor dentition Possible difficult airway: No ASA Classification *see protocol: CLASS II-Mild systemic disease Plan of Care: Pt appropriate candidate for procedure/moderate/conscious sedation, Risks/benefits of procedure/sedation discussed w/ patient/family Cardiac Registry (Cardio Only) - Functional Capacity Functional Capacity: < 4 METS - Clincal Frailty Scale Clinical Frailty Scale: Vulnerable
[2019-02-12] MEDS ORDERED: Iopamidol 125 ML INFUS..BTL ONE (11:39)
--- NOTE | 2019-02-12 12:21 | Invasive Diagnostic Lab Proc ---
Name: Randy Lam Date of Study: 02/12/2019 Date: 1950 Ht: 68.9in Medical Record#: [id number] Age: 68 Wt: 160.94lb Gender: Male BSA: 1.88 Order #: [id number] BMI: 23.84 Physicians Procedure Physician: Aisha Larry MD, [facility] Referring MD: Referring MD: Staff Name Position Time In Sandra Soto RN Monitor 11:22 AM Efrain Shankar RT (R) Scrub 11:22 AM Stephany Post RT (R) Scrub 11:22 AM Carlo Sebastian RN Hand Sign Writer 11:22 AM Procedures Performed Procedure L HRT ARTERY/VENTRICLE ANGIO Pre-Procedure Checklist Informed consent is complete signed and on chart. H&P is on chart. ID band is on and ID verified with patient. Patient NPO for procedure The procedure was described for the patient and questions were answered. Blood Pressure: 147/94 ECG is on chart. Plan of Care Patient will tolerate the procedure without complications. Adequate level of comfort will be maintained. Hemodynamics will remain stable Patient will recover from procedure without complications. Respiratory function will be maintained. Cardiac rhythm will remain stable. Patient temperature will be maintained. Patient and/or family have verbalized understanding of the procedure. Patient Education Chief Complaint/Reason for Test: Cardiac Cath Developmental Category: Geriatric (65+ years) Developmentally Appropriate for Age: Yes Learning Barriers: None Education Needs: Procedure Education Method: Verbal Information Taught: Cardiac Cath Educational Evaluation: Able to repeat information Intravenous Access Time IV Size Location DC'd Fluid/Drip Rate Units RN 20g 1 /" Patent On Arrival 0.9NaCl ml/hr Allergies No Known Allergies Vital Signs Time BP (mmHg) HR (bpm) O2 Sat. RR (bpm) LOC 11:27 AM / % 5 = Fully awake and oriented or at pre-proc level 11:27 AM / % 4 = Oriented but drowsy 11:28 AM 147 / 94 59 100 % 17 11:32 AM 146 / 88 58 100 % 20 11:37 AM 154 / 83 58 100 % 38 11:42 AM 155 / 95 73 100 % 11 11:47 AM 150 / 98 67 99 % 12 11:52 AM 146 / 102 67 100 % 29 Procedural Medications Time Medication Dose Units Method Given By 11:27 AM Oxygen 2 L/min nasal cannula Carlo Sebastian RN 11:27 AM Versed 2 mg Intravenous Carlo Sebastian RN 11:27 AM Fentanyl 50 mcg Intravenous Carlo Sebastian RN 11:32 AM Benadryl 25 mg Intravenous Carlo Sebastian RN 11:32 AM Lidocaine 2% 19 ml Subcutaneous Aisha Larry MD, [facility] ASA Classification: CLASS II- Mild systemic disease (i.e. well-controlled diabetes, hypertension, asthma, cigarette smoking) Kalina Score Preprocedure Postprocedure Activity 2- Moves 4 extremities sustained head lift Activity 2- Moves 4 extremities sustained head lift Circulation 2- SBP +/= 20 points of pre-anesthetic level Circulation 2- SBP +/= 20 points of pre-anesthetic level Consciousness 2- Awake and alert oriented x 3 Consciousness 2- Awake and alert oriented x 3 O2 Saturation 2- Able to maintain O2 satruation of 92% on room air O2 Saturation 2- Able to maintain O2 satruation of 92% on room air Respiratory 2- Able to deep breathe and cough well Respiratory 2- Able to deep breathe and cough well Total Score 10 Total Score 10 Contrast Agent: Isovue Diagnostic Contrast: 99 ml Total Contrast: 99 ml Fluoro Dose: 24 mGy Procedure Log Time Note Enter By 11: AM Pt arrived to [employer] 2 at 11: [facility] 11:22 AM Sandra Soto RN Position: Monitor Time in: : [facility] 11:22 AM Efrain Shankar RT (R) Position: Scrub Time in: : [facility] 11: AM Stephany Post RT (R) Position: Scrub Time in: : [facility] 11:22 AM Carlo Sebastian RN Position: Hand Sign Writer Time in: : [facility] 11:22 AM Patient charges- Angio tray pack, Navilyst 3mm J, Pulse Oximetry and ACIST tubing and transducer [facility] 11:22 AM Case Delayed No kmavis 11:23 AM Physician arrived 11: [facility] 11:23 AM Bert and mary completed [facility] 11:23 AM Sign in performed according to hospital policy. Informed consent was obtained. [facility] 11: AM Procedure start 11: [facility] 11: AM CathStat 11: AM Vitals capture started with the following parameters, Patient=Adult, Interval=5 min, Initial Lkamytik=132 mmHg, Deflation Rate=3 mmHg, Cuff placed on Right Arm AM Time: Oxygen on at 2 L/min per nasal cannula by Carlo Sebastian RN [facility] AM Time: Patient comfortable and pain free: Yes kmavis AM Time: LOC: 5 = Fully awake and oriented or at pre-proc level kmavis AM Time: Versed 2 mg Intravenous Given by Carlo Sebastian RN [facility] AM Time: Fentanyl 50 mcg Intravenous Given by Carlo Sebastian RN [facility] : AM HR=59 bpm, LXGU=595/94 mmhg, HrE0=130 %, Resp=17 B/min 11: AM Pressure channel 1 zeroed. 11:30 AM Recorded ECG: HR=55 Condition=Condition 1 11: AM Time out was performed according to hospital policy. Conscious sedation and anesthesia was achieved (see medication log with in this report above) avis 11:32 AM ASA Class CLASS II- Mild systemic disease (i.e. well-controlled diabetes, hypertension, asthma, cigarette smoking) [facility] 11:32 AM Time: 11: Benadryl 25 mg Intravenous Given by Carlo Sebastian RN [facility] 11:32 AM HR=58 bpm, ZZAN=047/88 mmhg, GjN7=273.0 %, Resp=20 B/min 11: AM Time: : 19 ml Lidocaine 2% to right groin Subcutaneous Given by Aisha Larry MD, [facility] 11:34 AM Access obtained by percutaneous puncture. 5Fr 10cm Terumo Assonet sheath placed in right Femoral artery. [id number] avis 11:35 AM 5Fr FL 4 [facility] AM 0.035 145cm Navilyst 3mmJ wire [id number] avi 11:35 AM LCA angiography performed in multiple views. avis 11:37 AM Recorded Pressure: Ao, HR=54, Condition=Condition 1 (Aorta) Ao 134/88/109 11:37 AM HR=58 bpm, SJBI=526/83 mmhg, LsV9=410.0 %, Resp=38 B/min 11:39 AM Catheter removed kmavis 11:39 AM 5Fr FR 4 catheter inserted over the wire DN kmavis 11:42 AM HR=73 bpm, HAWE=804/95 mmhg, ChP8=439.0 %, Resp=11 B/min 11:42 AM Time: 11:27LOC: 4 = Oriented but drowsy kmavis 11:42 AM Time: 11:27 Patient comfortable and pain free: Yes kmavis 11:43 AM RCA angiography performed in multiple views. kmavis 11:43 AM Catheter removed avis 11:43 AM 5Fr Pigtail catheter inserted over the wire [facility] kmavis 11:43 AM Catheter crossed the aortic valve and was selectively placed in the left ventricle. Pressures recorded on pullback for left heart catheterization. avi 11:44 AM Pressure channel 1 zeroed. 11:44 AM Recorded Pressure: LV, HR=75, Condition=Condition 1 (Left Ventricle) LV 144/10/25 11:44 AM Bolus angiogram of left Ventricle complete: 8 ml/sec for a total of 24 mls avis 11:45 AM Recorded Pressure: LV, Ao, HR=72, Condition=Condition 1 (Left Ventricle) LV 111/35/35, (Aorta) Ao 122/88/105 11:45 AM Catheter removed kmavis 11:46 AM Bolus angiogram of right Femoral complete: 4 ml/sec for a total of 7 mls avis 11:46 AM Procedure completed at 11:46 02/12/2019 avi 11:46 AM What is the NYHA Class? Class 3 avis 11:47 AM Sign out completed: Radiation Dose 182.17 mGy, 23.8 Gy/cm2 Fluoro Time: 2.9 Isovue 370 - 200ml contrast 99 ml given by Aisha Larry MD, [facility]. Complications: None. The patient was discharged out of the clinical laboratory assistant in stable condition. Sedation minutes 20. Cardiac Rehab Consult needed: No. Confirmed administered medications: Yes avis 11:47 AM Isovue 370 - 200ml,2 Bottle(s) used. avis 11:47 AM HR=67 bpm, JEIC=533/98 mmhg, SpO2=99.0 %, Resp=12 B/min 11:48 AM Arterial sheath pulled, Mynx closure device used and was Successful [id number] S/N. kmavis 11:48 AM Estimated Blood Loss: minimal kmavis 11:48 AM Post Blood Pressure 150/98 kmavis 11:48 AM Information taught Cardiac Cath kmavis 11:48 AM Education needs Procedure, Plan of Care, and Disease Process kmavis 11:48 AM Learning barriers :None kmavis 11:48 AM Education Methods Verbal [facility] 11:48 AM Education evaluation Able to repeat information kmavis 11:48 AM Site status No bleeding/ No Hematoma - Rt Groin as reported by Stephany Post RT (R) at 11:48 kmavis 11:48 AM Opsite applied kmavis 11:48 AM Plavix, Effient or Brilinta given No kmavis 11:48 AM Delay to floor No kmavis 11:49 AM Family placed in consult room. kmavis 11:49 AM Complications: None kmavis 11:49 AM Coronary Dominance: right kmavis 11:52 AM Report given to Amy COLEY Pt taken to 3B Room #36. 11:52 kmavis 11:52 AM HR=67 bpm, RRNU=970/102 mmhg, AjY5=968.0 %, Resp=29 B/min 11:57 AM Did you address DESIREE flow and Dominance? YesCoronary Dominance: right kmavis 11:57 AM Coronary Dominance: right kmavis 11:57 AM Lesion found in Proximal RCA. Pre Stenosis: 40 Pre DESIREE Flow: kmavis 11:58 AM Lesion found in Mid RCA. Pre Stenosis: 40 Pre DESIREE Flow: kmavis 11:58 AM Lesion found in Distal RCA. Pre Stenosis: 30 Pre DESIREE Flow: kmavis 11:58 AM Lesion found in Mid LAD. Pre Stenosis: 60 Pre DESIREE Flow: kmavis 11:58 AM Lesion found in 1st Diagonal. Pre Stenosis: 60 Pre DESIREE Flow: kmavis 11:59 AM Lesion found in Proximal Circumflex. Pre Stenosis: 50 Pre DESIREE Flow: kmavis 11:59 AM Patient out of room: 11:59 kmavis Complications Complication None None Hemodynamics Pressures Site Systolic/A Wave Diastolic/V Wave Mean AO 134 88 109 LV 144 10 25 LV 111 35 35 AO 122 88 105 Post Procedure Information Blood Pressure: 150/98 mmHg Post procedural instructions were given Closure Device Time Device Success/Fail 02/12/2019 11:59:00 AM MynxGrip Successful Site Checks Time Location Status Staff Sheath In? Note 11:48 AM Rt Groin No bleeding/ No Hematoma Stephany Post RT (R) Pulses Time Site Pre-Procedure Post-Procedure Note Bilateral PT 2+ Bilateral radial 2+ Updated by Sandra Soto RN on 02/12/2019 12:03:07 PM electronically signed on 02/12/2019 12:03:53 PM with status of Final
--- NOTE | 2019-02-12 13:55 | Event Note ---
Date of Encounter: 02/12/19 Time of Encounter: 13:52 [facility] demonstrated nonobstuctive CAD. Cardiomyopathy is nonischemic. Agree with aspirin/statin/BB/ACEi therapy. Will start low dose lasix, 20 mg daily. CHF education. We will arrange outpatient cardiology follow up. No further inpatient cardiology recommendations. Please call with questions or concerns. Thanks, Yg Edwards DO, FACC
[2019-02-13 05:48] LABS: Basophils % 0.1 %; Hematocrit 40.6 % (37.5-50.1); Hemoglobin 13.4 g/dL (12.9-16.9); Immature Granulocytes % 0.6 % (0-4); Lymphocytes # 2.3 K/mcL (0.6-4.6); Lymphocytes % 17.4 %; Mean Corpuscular Hemoglobin 29.6 pg (28.0-33.3); Mean Corpuscular Volume 89.8 fL (83.0-100.0); Mean Platelet Volume 11.5 fL (9.4-12.4); Monocytes # 0.8 K/mcL (0.0-1.3); Monocytes % 6.1 %; Neutrophils # 9.9 K/mcL (1.6-8.9); Platelet Count 238 K/mcL (140-400); Red Blood Count 4.52 M/mcL (4.19-5.50); Red Cell Distribution Width 14.4 % (11.5-14.5); Segmented Neutrophils % 75.8 %
[2019-02-13 05:52] LABS: White Blood Count 13.1 K/mcL (4.3-11.1)
[2019-02-13] MEDS: MethylPREDNISolone 40 MG/ML VIAL IVP SCH (06:02)
[2019-02-13] MEDS: *HR* Heparin 5,000 UNIT/ML VIAL SQ SCH ×2 (06:02→17:54)
[2019-02-13 06:09] LABS: BUN/Creatinine Ratio 34 (6-26); Blood Urea Nitrogen 27 mg/dL (8-23); Calcium 8.7 mg/dL (8.6-10.3); Carbon Dioxide 28 mEq/L (23-29); Chloride 100 mEq/L (98-107); Glucose 110 mg/dL (70-105); Osmolality,Calculated 290 (280-300); Potassium 4.2 mEq/L (3.5-5.1); Sodium 137 mEq/L (136-145); eGFR For African Americans > 60 (> 60); eGFR For Non-African Americans > 60 (> 60)
[2019-02-13] MEDS: Aspirin 81 MG TAB.CHEW PO SCH (09:56)
[2019-02-13] MEDS: Furosemide 20 MG TABLET PO SCH (09:56)
--- NOTE | 2019-02-13 11:33 | Event Note ---
Date of Encounter: 02/13/19 Time of Encounter: 11:[address] Perez yesterday afternoon. Plan for LifeVest prior to discharge.
--- NOTE | 2019-02-13 11:36 | Internal Med Progress Note ---
<Efrain Montes De Oca - Last Filed: 02/13/19 14:00> Hospitalist Progress Note - Encounter Date of Encounter: 02/13/19 Time of Encounter: 11:36 - Subjective Interval History: Pt sitting in bed watching television. No complaints. States his breathing has improved and denies any chest pain, SOB, headaches, vision changes, abdominal pains, diarrhea, constipation, sputum production. - Exam Vitals: Temp Pulse Resp BP Pulse Ox 98.1 F 68 16 163/69 97 02/13/19 11:33 02/13/19 11:33 02/13/19 11:33 02/13/19 11:33 02/13/19 11:33 Exam: Gen: NAD, ill appearing CVS: RRR, S1, S2, no edema in LE or abdomen Lungs: Diminished breath sounds but can hear air flow in all lung johnson anteriorly and posteriorly, symmetric expansion, nonlabored Abdomen: soft, nontender, no ascites Extremities: radial & dorsal pulses present B/L 2+ - Assessment and Plan (1) CHF (congestive heart failure) Current Visit: Yes Status: Acute Assessment and Plan: Pt without known history of heart problems CT showed bilateral pulmonary effusions and aortic dilation No murmurs auscultated on physical exam No lower extremity edema auscultation consistent with diffuse pulmonary edema BNP elevated at 2415 Troponin mildly elevated at 0.05, 0.06 and 0.06, consistent with type 2 spill EKG findings of LVH Echo performed 02/11 showed EF of 25-30% Cardiology consulted and saw patient 02/12 LHC performed which showed EF ~20%; no interventions performed-medical managemen t advised Appreciate cardiology input- contineu acei/statin/BB/asa Will get further cardiology input on whether to continue current beta jarocho; pt is bradycardic at rest with 55bpm and nursing states he drops into the 30's while sleeping. He remains asymptomatic Will need 6 minute walk test prior to d/c (2) Pneumonia Current Visit: Yes Status: Resolved Assessment and Plan: Pt presented to ED with worsening SOB refractory to outpatient abx treatment for suspected pneumonia 02/04 Procalcitonin was found to be low Influenza and RSV PCR's negative Patient remains afebrile minimal response to antibiotic treatment Physical exam findings showing diffuse rhonchi, with even severity throughout all lung johnson CHF appears more likely Dx given elevated BNP and Troponin PNA very unlikely given the above findings d/c abx Due to clinical improvement, will begin taper of steroids from Q8 to Q12H 02/12; plan on switching to oral 40mg PO once a day starting 02/13 (3) Sepsis Current Visit: Yes Status: Ruled-out Assessment and Plan: see pneumonia plan (4) Abnormal CT of the chest Current Visit: Yes Status: Acute Assessment and Plan: Abnormal findings included: Dilatation of the ascending and descending thoracic aorta. Nonemergent vascular consultation will be planned after discharge Nonspecific mediastinal lymph node enlargement follow-up imaging should be considered in 3-6 months. 5.0 mm solid pulmonary nodule within the upper lobe. A non-contrast Chest CT at 12 months is optional. If performed and the nodule is stable at 12 months, no further follow-up is recommended. Partial visualization of the gallbladder demonstrates pericholecystic fluid which is nonspecific. RUQ ultrasound Sludge and stones in the gallbladder. No evidence of cholecystitis. DVT Prophylaxis: SQH - Time Spent with Patient Total time spent is greater than 50% in coordination of care (as documented) at patient's floor/unit and/or counseling patient: Internal Medicine: Result - Labs CBC & Chem 7: 02/13/19 04:47 02/13/19 04:47 Labs: Short CBC 02/13/19 Range/Units 04:47 WBC 13.1 H D (4.3-11.1) K/mcL Hgb 13.4 (12.9-16.9) g/dL Hct 40.6 (37.5-50.1) % Plt Count 238 (140-400) K/mcL Neutrophils # 9.9 H (1.6-8.9) K/mcL BMP 02/13/19 04:47 Sodium 137 Potassium 4.2 Chloride 100 Carbon Dioxide 28 BUN 27 H Creatinine 0.80 Glucose 110 H Calcium 8.7 - ABG Interpretation ABG results: ABG ABG pH 7.45 pH Units (7.32-7.45) 02/10/19 10:29 ABG pCO2 33 mmHg (35-45) L 02/10/19 10:29 ABG pO2 65 mmHg (85-104) L 02/10/19 10:29 ABG O2 Saturation 94 % (95-98) L 02/10/19 10:29 PT/INR, D-dimer PT 10.9 Seconds (9.4-12.1) 02/10/19 09:48 - Impressions Impressions Abdomen Ultrasound 02/11/19 22:26 IMPRESSION: Sludge and stones in the gallbladder. No evidence of cholecystitis. D/ / 02/11/2019 23:25:17 Deja Lemos MD / shaunna Interpreting Provider: Deja Lemos MD Consult Discharge Plan - Plan Referrals: Michi Rossi MD [Resident] - 02/19/19 2:00 pm (Please arrive 30 min early to your appointment to fill out paperwork. Please bring a list of medications including any over the counter medications you are taking. Bring your insurance card and valid ID.) <Sherlyn Burgos - Last Filed: 02/13/19 16:45> Hospitalist Progress Note - Encounter Date of Encounter: 02/13/19 - Exam Vitals: Temp Pulse Resp BP Pulse Ox 97.5 F L 51 16 113/69 98 02/13/19 15:22 02/13/19 15:22 02/13/19 15:22 02/13/19 15:22 02/13/19 15:22 - Assessment and Plan (1) CHF (congestive heart failure) Current Visit: Yes Status: Acute (2) Pneumonia Current Visit: Yes Status: Resolved (3) Demand ischemia Current Visit: Yes Status: Suspected (4) Sepsis Current Visit: Yes Status: Ruled-out (5) Tobacco abuse Current Visit: Yes Status: Chronic (6) CAD (coronary artery disease) Current Visit: Yes Status: Chronic - Time Spent with Patient Total time spent is greater than 50% in coordination of care (as documented) at patient's floor/unit and/or counseling patient: Internal Medicine: Result - Labs CBC & Chem 7: 02/13/19 04:47 02/13/19 04:47 Labs: Short CBC 02/13/19 Range/Units 04:47 WBC 13.1 H D (4.3-11.1) K/mcL Hgb 13.4 (12.9-16.9) g/dL Hct 40.6 (37.5-50.1) % Plt Count 238 (140-400) K/mcL Neutrophils # 9.9 H (1.6-8.9) K/mcL BMP 02/13/19 04:47 Sodium 137 Potassium 4.2 Chloride 100 Carbon Dioxide 28 BUN 27 H Creatinine 0.80 Glucose 110 H Calcium 8.7 - ABG Interpretation ABG results: ABG ABG pH 7.45 pH Units (7.32-7.45) 02/10/19 10:29 ABG pCO2 33 mmHg (35-45) L 02/10/19 10:29 ABG pO2 65 mmHg (85-104) L 02/10/19 10:29 ABG O2 Saturation 94 % (95-98) L 02/10/19 10:29 PT/INR, D-dimer PT 10.9 Seconds (9.4-12.1) 02/10/19 09:48 - Attending Attestation The history, physical exam, and medical decision making was performed by the medical student either while I was physically present and actively involved or I personally re-performed the exam and medical decision making. I have verified the accuracy of the medical student's documentation with regards to the history, physical exam findings, and medical decision making. Mr Lam is admitted for new onset systolic heart failure awake, no cp, pressure sob or palpitations gen- alert, awake,appears stated age cv- reg rate and rhythm, normal s1,s2, no pitting le edema or jvd lungs- ctabl, no wheezing, rhonchi or crackles abd- soft, non tender, non distended, + bs neuro- AAOx3 Acute HFrEF, now euvolemic appearing Non obstructive CAD -cont med regimen, aware of asx mayra at night with new coreg, d/w cardiology and rec is to cont, awaiting life vest for discharge -6 min walk test prior to dc Incidental lung nodule- fu with pcp for repeat imaging in 12 months, d/w pt Presumed Emphysema- nicotine cessation education and pt now stating he will not smoke again, fu outpt Presumed pna s/p treatment with zpack, asx now off abx -transitioned to PO steroid, short taper on dc Noted to have sepsis on admit with presumed pna, now resolved dispo will be to home pending life vest arrival, likely tomorrow as d/w SW <Efrain Montes De Oca R - Last Filed: 02/13/19 14:00> (1) CHF (congestive heart failure) Qualifiers: Heart failure type: systolic Heart failure chronicity: acute Qualified Code(s): I50.21 - Acute systolic (congestive) heart failure (2) Pneumonia Qualifiers: Pneumonia type: due to Pneumococcus Laterality: unspecified laterality Lung location: unspecified part of lung Qualified Code(s): J13 - Pneumonia due to Streptococcus pneumoniae (3) Sepsis Qualifiers: Sepsis type: sepsis due to unspecified organism Sepsis acute organ dysfunction status: without acute organ dysfunction Qualified Code(s): A41.9 - Sepsis, unspecified organism <Sherlyn Burgos M - Last Filed: 02/13/19 16:45> (1) CHF (congestive heart failure) Qualifiers: Heart failure type: systolic Heart failure chronicity: acute Qualified Code(s): I50.21 - Acute systolic (congestive) heart failure (2) Pneumonia Qualifiers: Pneumonia type: due to Pneumococcus Laterality: unspecified laterality Lung location: unspecified part of lung Qualified Code(s): J13 - Pneumonia due to Streptococcus pneumoniae (4) Sepsis Qualifiers: Sepsis type: sepsis due to unspecified organism Sepsis acute organ dysfunction status: without acute organ dysfunction Qualified Code(s): A41.9 - Sepsis, unspecified organism (6) CAD (coronary artery disease) Qualifiers: Coronary Disease-Associated Artery/Lesion type: andre[place]ski artery [place] vs. transplanted heart: andreafski heart Associated angina: without angina Qualified Code(s): I25.10 - Atherosclerotic heart disease of andreafski coronary artery without angina pectoris
--- NOTE | 2019-02-13 16:02 | Electrocardiograph Report ---
[address] [address] Test Date: 2019-02-13 Pat Name: Randy Lam Department: 113 Room: 3B36 Gender: M Art Coordinator: : 1950 Requested By: [id number] Order Number: [id number] Reading MD: Yg Edwards Measurements Intervals Simpson Rate: 50 P: SD: 0 QRS: 44 QRSD: 102 T: 211 QT: 482 QTc: 454 Interpretive Statements Sinus bradycardia with a PAC Left ventricular hypertrophy Anterolateral ST-T changes due to hypertrophy and/or ischemia Electronically Signed On 02-13-2019 16:00:14 EDT by Yg Edwards
[2019-02-14] MEDS: *HR* Heparin 5,000 UNIT/ML VIAL SQ SCH (05:25)
[2019-02-14 05:40] LABS: Hematocrit 41.4 % (37.5-50.1); Hemoglobin 13.5 g/dL (12.9-16.9); Mean Corpuscular HGB Conc 32.6 g/dL (31.6-35.5); Mean Corpuscular Hemoglobin 29.6 pg (28.0-33.3); Mean Corpuscular Volume 90.8 fL (83.0-100.0); Mean Platelet Volume 11.1 fL (9.4-12.4); Platelet Count 220 K/mcL (140-400); Red Blood Count 4.56 M/mcL (4.19-5.50); Red Cell Distribution Width 14.1 % (11.5-14.5); White Blood Count 9.2 K/mcL (4.3-11.1)
--- NOTE | 2019-02-14 08:02 | Discharge Summary ---
<Sherlyn Burgos - Last Filed: 02/14/19 12:49> Orders not resulted at time of discharge: Pending orders 02/10/19 10:55 Blood Culture [Culture,Blood] [] Stat Date of Encounter: 02/14/19 - Discharge Diagnosis (1) CHF (congestive heart failure) Status: Acute Qualifiers: Heart failure type: systolic Heart failure chronicity: acute Qualified Code(s): I50.21 - Acute systolic (congestive) heart failure (2) Pneumonia Status: Resolved Qualifiers: Pneumonia type: due to Pneumococcus Laterality: unspecified laterality Lung location: unspecified part of lung Qualified Code(s): J13 - Pneumonia due to Streptococcus pneumoniae (3) Demand ischemia Status: Suspected (4) Sepsis Status: Ruled-out Qualifiers: Sepsis type: sepsis due to unspecified organism Sepsis acute organ dysfunction status: without acute organ dysfunction Qualified Code(s): A41.9 - Sepsis, unspecified organism (5) Tobacco abuse Status: Chronic (6) CAD (coronary artery disease) Status: Chronic Qualifiers: Coronary Disease-Associated Artery/Lesion type: ramona artery [place] vs. transplanted heart: ramona heart Associated angina: without angina Qualified Code(s): I25.10 - Atherosclerotic heart disease of ramona coronary artery without angina pectoris Hospital course: Mr. Lam is a 68 year old male - Time Spent with Patient Total time spent providing and/or coordinating discharge services: - Discharge Medications Prescriptions: New Aspirin 81 mg PO DAILY 30 Days #30 tab.chew Furosemide [Lasix] 20 mg PO DAILY 30 Days #30 tablet Atorvastatin [Lipitor] 40 mg PO HS 30 Days #30 tablet predniSONE [PredniSONE] 40 mg PO DAILY 6 Days #7 tablet Lisinopril [Zestril] 2.5 mg PO DAILY 30 Days #15 tablet Continued Albuterol Sulfate [Proventil Inhaler] 2 puff IH Q4HR #1 puff Home Medications: Albuterol Sulfate [Proventil Inhaler] 2 puff IH Q4HR #1 puff 02/04/19 [Rx] Aspirin 81 mg PO DAILY 30 Days #30 tab.chew 02/14/19 [Rx] Atorvastatin [Lipitor] 40 mg PO HS 30 Days #30 tablet 02/14/19 [Rx] Furosemide [Lasix] 20 mg PO DAILY 30 Days #30 tablet 02/14/19 [Rx] Lisinopril [Zestril] 2.5 mg PO DAILY 30 Days #15 tablet 02/14/19 [Rx] predniSONE [PredniSONE] 40 mg PO DAILY 6 Days #7 tablet 02/14/19 [Rx] Allergies/Adverse Reactions: Allergy/AdvReac Type Severity Reaction Status Date / Time No Known Allergies Allergy Verified 02/11/19 08:01 Date of admission: 02/12/19 13:13 Primary care physician: PCP NONE Consults: 02/11/19 08:41 Consult to Nurse Navigator [CONS] Routine Comment: PNEUMONIA, CHF 02/11/19 15:58 Consult to Cardiology [CONS] Routine Comment: Spoke with Dr Edwards Consulting Provider: Cardiology Corry Reason for Consult: New-onset L sided CHF Time Notified: 15:59 Call Completed: Yes 02/12/19 10:34 Consult to Cardiac Rehabilitation-Phase1 [CONS] Routine Comment: Reason for Consult: Elevated troponins, LHC pending, new HF Call Completed: No - Constitutional Vitals: Temp Pulse Resp BP Pulse Ox 97.4 F L 47 16 133/80 98 02/14/19 11:30 02/14/19 11:30 02/14/19 11:30 02/14/19 11:30 02/14/19 11:30 - Patient Status Disposition: Home, Self-Care Condition: Good Functional capacity at discharge: independent ambulation Overall status at discharge: patient is back to baseline - Discharge Instructions Instructions: Heart Failure (DC), Coronary Artery Disease (DC), Cigarette Smoking and Your Health (GEN) Follow Up With: Michi Rossi MD [Resident] - 02/19/19 2:00 pm (Please arrive 30 min early to your appointment to fill out paperwork. Please bring a list of medications including any over the counter medications you are taking. Bring your insurance card and valid ID.) Yg Edwards DO [Partnered Physician] - (Office will call with date and time of appointment) Additional Instructions: - Return immediately to the ER if you experience any recurrence of severe symptoms, or if any new symptoms arise Concerning. Symptoms may include, but are not limited to; severe shortness of breath, chest pain or tightness, lower extremity swelling, fevers that do not respond to Tylenol, anything else you find concerning. Your heart rate is low- if you experience dizziness, lightheadedness, fatigue or chest pain as we discussed- seek immediate medical attention or call 911 - Is EXTREMELY IMPORTANT that you wear your life vest as instructed - You have been given referrals to the [facility] for primary care, your appt is 02/19/[address] Rossi -You have been referred to Dr Edwards for Cardiology. If the office doesn't call you by the time you see your new PCP Dr Rossi, let him know and he can help facilitate appt being scheduled -You also need to discuss with your PCP an incidental lung nodule seen on imaging while in the hospital as we discussed. -weigh yourself every day. If you experience a 2 pund weight gain, contact the doctors office. Avoid foods high in salt and drink no more than 2 liters of fluids in a day. This will help reduce the risk of heart failure flare up. - Diet and Activity Diet: low fat, low cholesterol, low salt diet, other (2L fluid restriction daily) - Attending Attestation I examined this patient and my medical decision-making was reviewed with the Resident Physician dR Lawrence. I agree with the documented findings, disposition and treatment plan as described except to the extent set forth below. Mr Lam is admitted for new onset systolic heart failure. He is being discharged to home with life vest in stable condition awake, RN at bedside. He remaiins feeling very well. no sob, cp, pressure or palpitations. He remains bradycardic when sleeping and then additionally at times when awake. He denies any presyncope, or other sxs and is feeling great. He walked with his rn to preform a 6min walk and does not require oxygen on discharge and had no sxs with HR gen- alert, awake,appears stated age cv- reg rate and rhythm, normal s1,s2, no pitting le edema or jvd lungs- ctabl, no wheezing, rhonchi or crackles, norm resp effort on room air neuro- AAOx3 Acute HFrEF, resolved Non obstructive CAD NICM Bradycardia -cont asa, statin, acei and lasix -bradycardia d/w cardiology and no further interventions required; given he remains mayra without coreg low dose yesterday we will not give rx on dc, he will fu outpt and attempt to re initiate in outpt setting as did not tolerate here -life vest arrived -close pcp and cardiac follow up Incidental lung nodule- fu with pcp for repeat imaging in 12 months, d/w pt Presumed Emphysema- nicotine cessation education and pt now stating he will not smoke again, fu outpt, declined nicotine patch Presumed pna s/p treatment with zpack -transitioned to PO steroid, short taper on dc Noted to have sepsis on admit with presumed pna,resolved dispo will be to home as has no PCP cannot set up HHC for him, but he has new pcp appt scheduled for in 5 days and can be referred to HHC at that time time spent on dc 45 min <Umberto Lawrence S - Last Filed: 02/14/19 16:09> - NOTES TO OUTPATIENT PROVIDER Notes to Outpatient Provider: Mr. Lam was admitted for persistent shortness of breath after Z-Tyler treatment for pneumonia, was found to be in new onset left he art failure. Catheter showed nonobstructing triple vessel CAD, no stents were placed, EF was 20%. Echo showed severe anterior and lateral wall motion abnormalities. Patient was started on aspirin, statin, KHOI inhibitor and Lasix. Held beta jarocho due to bradycardia. Patient discharged with life vest. Patient needs to follow-up on referrals to Dr. Edwards of cardiology and to our residency clinic for primary care. Incidental lung nodule on imaging, discussed with patient, follow-up indicated. 6 and a walk test showed no need for home oxygen Orders not resulted at time of discharge: Pending orders 02/10/19 10:55 Blood Culture [Culture,Blood] [] Stat Date of Encounter: 02/14/19 Time of Encounter: 09:30 - Discharge Diagnosis (1) CHF (congestive heart failure) Priority: Primary Status: Acute Assessment and Plan: New onset CHF with EF of 20% diagnosed on [facility] Denies ongoing shortness of breath, chest pain, tightness, palpitations * ASA, KHOI-i, Statin, Lasix * Beta jarocho held due to bradycardia * Patient to be fitted with life vest before discharge * 6 minute walk test showed no need for home oxygen * Risk of drug use discussed as stated in IVDU below Qualifiers: Heart failure type: systolic Heart failure chronicity: acute Qualified Code(s): I50.21 - Acute systolic (congestive) heart failure (2) Abnormal CT of the chest Priority: Secondary Status: Acute Assessment and Plan: Incidental finding of lung nodule in the chest * Discussed need for follow-up with his primary care provider, as primary care with evaluate need for further imaging and/or interventions * Patient voiced understanding, and plan to discuss with primary care provider (3) IVDU (intravenous drug user) Priority: Secondary Status: Ruled-out Assessment and Plan: Review of patient's old records showed mention of IV drug use, including heroin I inquired about any prior IV drug use and prior conversation with the patient, he reported that he smokes marijuana, mild but has never done IV drugs I mentioned to him the extreme negative impact the stimulant such as methamphetamine and cocaine could have on his current cardiac condition. He denies having ever used meth or cocaine, and voluntarily brought up quitting marijuana, asking if that would help his heart. I mentioned that while THC and nicotine had very different effects, they both deposited tar and lungs and made the heart after work harder. To which she responded "that on done with that, I aint gonna smoke anymore!" * Patient lives no reason to suspect he is being untruthful * There are no physical exam findings, psychiatric findings, abnormalities in history suggesting illicit drug use * IV drug abuse status changed to "ruled out" Hospital course: Mr. Lam is a 68 year old male who was admitted to her service after he had persistent shortness of breath following treatment for suspected pneumonia with a Z-Tyler. Workup found new-onset CHF with EF of 20% and triple vessel non- obstructing CAD Patient's symptoms resolved well with diuresis, aspirin, statin, KHOI inhibitor. Patient was bradycardic, and so beta jarocho was held at this time. Dr. Edwards of cardiology was consulted, recommended LifeVest, and will follow outpatient course Patient is tapering steroids, 6 minute walk test showed no need for outpatient oxygen, follow-up established and discussed with patient. Discharge discussed with: patient - Time Spent with Patient Total time spent providing and/or coordinating discharge services: Date of admission: 02/12/19 13:13 Primary care physician: PCP NONE Consults: 02/11/19 08:41 Consult to Nurse Navigator [CONS] Routine Comment: PNEUMONIA, CHF 02/11/19 15:58 Consult to Cardiology [CONS] Routine Comment: Spoke with Dr Cleveland Consulting Provider: Cardiology Corry Reason for Consult: New-onset L sided CHF Time Notified: 15:59 Call Completed: Yes 02/12/19 10:34 Consult to Cardiac Rehabilitation-Phase1 [CONS] Routine Comment: Reason for Consult: Elevated troponins, LHC pending, new HF Call Completed: No Discharging clinician: Umberto Lawrence Anticipated date of discharge: 02/14/19 - Constitutional Vitals: Temp Pulse Resp BP Pulse Ox 97.7 F 37 16 143/81 95 02/14/19 06:54 02/14/19 06:54 02/14/19 06:54 02/14/19 06:54 02/14/19 06:54 General appearance: Present: A&O X 3, answers questions appropriately Exam: Gen: Awake and alert, no acute distress, well-nourished, Head: Normocephalic, atraumatic Eyes: EOMI, no scleral icterus ENT: Mucous membranes moist, no oropharyngeal erythema CV: S1-S2 present, regular rhythm, no murmurs rubs or gallops Pulm: Lung auscultation markedly improved fro,m my prior exam, Faint wheezes noted, Ronchi present on initial exam resolved at this time Abd: Soft, nontender to palpation, nondistended, no rebound or guarding. EXT: Grossly intact motor strength in all 4 extremities, no lower extremity edema, no distal cyanosis or pallor Skin: Warm, dry, intact, no rashes or lesions noted Neuro: Cranial nerves II-XII grossly intact, no focal neurologic deficits Psych: normal mood and affect, Answers questions with linear thought. He is appropriately motivated to take ownership of his care and make changes needed to improve his health. - Diet and Activity Activity: increase activity as tolerated
[2019-02-14] MEDS ORDERED: predniSONE 20 MG TABLET PO SCH (09:00)
[2019-02-14] MEDS: Aspirin 81 MG TAB.CHEW PO SCH (09:28)
[2019-02-14] MEDS: Furosemide 20 MG TABLET PO SCH (09:28)
[2019-02-14 11:31] VITALS: BP 133/80
== END 2019-02-14 13:26 | disposition home or self-care (01) | DRG 286 ==
LOC: EMEROOARM 09:38 → 3BNU 09:38 → SUATTDRO 11:47 → 3BNU 12:23 → SUATTDRO 02-12 13:13
PROVIDERS: ADMIT Internal Medicine; ATTEND Internal Medicine